=== PATIENT | female | born 1970 | race African-American/Black ===

== ENCOUNTER → 2023-11-23 09:22 | Outpatient (REF) | payer OTHER, SELFPAY | LOC: HWRAD 09:22 | PROVIDERS: ATTENDING PHYSICIAN Nurse Practitioner | DX: R20.2 Paresthesia of skin (principal) | CPT/HCPCS: 72050 ==

== ENCOUNTER → 2024-05-19 06:25 | Day surgery (SDC) | payer OTHER, SELFPAY | LOC: GI 06:25 | PROVIDERS: ATTENDING PHYSICIAN Internal Medicine | DX: Z12.11 Encounter for screening for malignant neoplasm of colon (principal); K64.9 Unspecified hemorrhoids; D12.2 Benign neoplasm of ascending colon; D12.3 Benign neoplasm of transverse colon; D12.8 Benign neoplasm of rectum | CPT/HCPCS: 45385; 88305 ==

== ENCOUNTER → 2024-06-01 18:59 | Outpatient (REF) | payer OTHER, SELFPAY | LOC: WDC 18:59 | PROVIDERS: FAMILY PHYSICIAN Nurse Practitioner | DX: Z12.31 Encounter for screening mammogram for malignant neoplasm of breast (principal) | CPT/HCPCS: 77063; 77067 ==

== ENCOUNTER 2024-12-06 20:30 | Emergency (ER) | payer OTHER, SELFPAY ==
[2024-12-06 20:40] VITALS: BP 140/107
[2024-12-06 21:00] LABS: Hematocrit 36.5 % (37.0-47.0); Hemoglobin 12.1 g/dL (12.0-16.0); Mean Corp Hgb Conc. 33.2 g/dL (33.0-37.0); Mean Corpuscular Hgb 27.9 pg (27.0-31.0); Mean Corpuscular Volume 84.1 fL (81.0-99.0); Mean Platelet Volume 11.3 fL (7.4-10.4); Platelet Count 215 10^3/uL (130-400); Red Blood Cell Count 4.34 10^6/uL (4.20-5.40); Red Cell Dist. Width 13.9 % (11.5-14.5); White Blood Cell Count 9.3 10^3/uL (4.8-10.8)
[2024-12-06 21:14] LABS: ALT (SGPT) 23 U/L (0-35); AST (SGOT) 29 U/L (14-36); Albumin 4.7 g/dl (3.5-5.0); Alkaline Phosphatase 104 U/L (38-126); Blood Urea Nitrogen 15 mg/dl (7-17); Calcium 10.3 mg/dl (8.4-10.2); Carbon Dioxide 24 mmol/L (22-30); Chloride 106 mmol/L (98-107); Glucose 85 mg/dl (70-99); Potassium 3.8 mmol/L (3.5-5.1); Sodium 141 mmol/L (135-145); Total Bilirubin 0.3 mg/dl (0.2-1.3); Total Protein 7.6 g/dl (6.3-8.2); eGFR > 60.00
--- NOTE | 2024-12-06 21:18 | ED.GENMED ---
History of Present Illness
General
Chief Complaint: Cardiac Symptoms
Source: patient
Exam Limitations: none
Time Seen by Provider: 12/06/24 21:07
Nursing documentation reviewed up to this point in time: agreed with
History of Present Illness
History of Present Illness:
54-year-old female with past medical history of asthma, GERD presents to the emergency department for evaluation of chest pain. Patient reports symptoms started just prior to arrival while she was doing some paperwork at home; she says that she had
rather abrupt onset of sharp pain in the left chest associated with palpitations, dizziness. She says its lasted for about 5 minutes and did not seem to be getting better and so she decided that she would drive to the emergency room to be
evaluated. She says that when she got here she waited in the parking lot for a bit and symptoms seem to be improved slightly but then they began to worsen again and so she came in to be evaluated. She says that since coming back into a room her
symptoms seem to have resolved. She says that she has not had similar symptoms in the past. She denies any personal history of heart issues but says that her mother has history of heart disease.
Review of Systems
Review of Systems
All Other Systems: ROS reviewed and negative except as documented in HPI and ROS
Constitutional: Denies fever
Respiratory: Reports trouble breathing; Denies cough
Cardiac: Reports chest pain and palpitations; Denies diaphoresis or syncope
ABD/GI: Denies abdominal pain, nausea or vomiting
: Denies flank pain
Musculoskeletal: Denies neck pain or back pain
Neurological: Reports dizzy; Denies headache
Phy Exam
Physical Exam
Physical Exam:
General: Awake, alert, oriented x3; no acute distress
Head: Normocephalic, atraumatic
Eyes: Conjunctiva normal, sclera anicteric
Throat: Airway intact, handling secretions
Neck: Trachea midline, supple without meningismus
Lungs: Clear to auscultation bilaterally, no wheezing, rales, rhonchi
Heart: Tachycardia with regular rhythm, no murmurs, gallops, or rubs
Abd: Soft, non distended, nontender
Neuro: No gross deficits
Extremities: No edema in extremities, equal pulses in all extremities
Scores
Heart Failure Risk
Heart Failure Risk Score: Not Applicable
Heart Score for Chest Pain Patients
STEMI patient?: No
History: Slightly or Non-Suspicious
ECG: Nonspecific Repolarization
Age: >45 - <65 years
Risk Factors: 1 or 2 Risk Factors
Troponin: </= Normal Limit
Heart Score for Chest Pain Patients: 3
Heart Score Risk: 2.5% MACE over next 6 weeks
PE Wells Score
Symptoms of DVT: No
No alternative diagnosis better explains the illness: Yes
Tachycardia with pulse > 100: Yes
Immobilization (>=3 days) or surgery within previous 4 weeks: No
Prior history of DVT or pulmonary embolism: No
Presence of hemoptysis: No
Presence of malignancy: No
Pulmonary Embolism Risk Score: 7.5
Probability of PE: Pt is high risk
Withdrawal Assessment of Alcohol
Withdrawal Assessment Completed?: Not applicable
Course
Orders/Labs/Results
Orders:
Orders
12/06/24 20:32
Electrocardiogram (*1) Urgent
Reason for Study: Chest Pain
12/06/24 20:33
EKG- Treatment ONCE
12/06/24 20:45
EKG [Electrocardiogram (*1)] Urgent
Reason for Study: Chest Pain
12/06/24 20:46
EKG- Treatment ONCE
12/06/24 20:48
Complete Blood Count/With Diff Urgent
Comprehensive Metabolic Panel Urgent
HCG, Serum Qualitative Screen Urgent
Comment: ADD ON
Manual Differential Urgent
Troponin I Urgent
12/06/24 21:17
CT Chest PE Study Urgent
Comment:
Reason For Exam: chest pain, SOB, tachycardia
12/06/24 21:25
EKG- Treatment ONCE
12/06/24 21:29
Add On- LAB Urgent
Tests Added?: HCG
12/06/24 23:45
EKG [Electrocardiogram (*1)] Urgent
Reason for Study: Chest Pain
Troponin I Urgent
Abnormal Lab Results
12/06/24
20:48
Hct 36.5 L %
(37.0-47.0)
MPV 11.3 H fL
(7.4-10.4)
Segmented Neutrophils 39 L %
(42-75)
Calcium 10.3 H mg/dl
(8.4-10.2)
12/06/24 20:48
12/06/24 20:48
Vital Signs
Initial and Last Documented VS:
Initial Vital Signs
Temp Pulse Resp BP Pulse Ox
36.7 C 106 22 140/107 100
12/06/24 20:40 12/06/24 20:40 12/06/24 20:40 12/06/24 20:40 12/06/24 20:40
Last Documented Vital Signs
Temp Pulse Resp BP Pulse Ox
36.7 C 95 23 128/89 98
12/06/24 20:40 12/06/24 21:30 12/06/24 21:30 12/06/24 21:24 12/06/24 21:30
MDM/Problems Addressed
Differential Diagnosis Includes:
ACS/angina, PE, dysrhythmia, pneumothorax, costochondritis, GERD, anxiety
MDM/Problems Addressed:
54-year-old female presents for evaluation of chest pain associated with palpitations, dizziness, shortness of breath�started just prior to arrival although symptoms seem to have improved since ER arrival. Hypertensive, tachycardic; otherwise
normal vitals. Physical exam as above. EKG shows sinus tachycardia. Plan to place an IV check labs including a CBC and a CMP. Check troponins. Will check CT chest. Will monitor on telemetry. Reassess after the above.
Labs reviewed: CBC and CMP unremarkable. Troponin undetectable x 1�repeat pending. CT chest negative for PE�incidental note of possible dilation of common bile duct. Patient has normal LFTs, no abdominal pain or tenderness�no indication for
emergent abdominal imaging at this point. Discussed with patient and she will follow-up on this with her primary doctor�provided copy of her report. Clinical reassessment patient has remained asymptomatic since initial assessment. Is feeling much
better. Her vital signs have normalized. Will continue to monitor pending repeat troponin. If negative plan to discharge with referral via chest pain hotline given her family history of heart disease. Patient is very comfortable with this plan.
All questions answered.
*Radiology
Radiology exam reviewed: radiology read reviewed
*Pulse Oximetry
Patient hypoxic: no
*EKG
Interpreted by ED Provider?: Yes
Heart Rate: 115
Rate: tachycardiac
Rhythm: sinus and sinus tachycardia
[place]: normal axis
Interval: normal interval
QRS Pattern: normal QRS
Ischemia: non-specific ST changes
*Critical Care Note
Total Time (30-74mins, 75-104mins- exclusive of procedures): Not Applicable
Data Reviewed
Source: patient and records
ED Attending Note
-
Portions of this chart may have been created with voice recognition software.� Occasional wrong word or��sound alike� substitutions may have occurred due to the inherent limitations of voice recognition software.
Discharge Plan
Departure
Patient with high blood pressure during this ER visit?: Yes
Discharge Problem:
Chest pain
Instructions: Chest Pain DCA Follow Up
Prescriptions:
No Action
Biotin
2 PO DAILY
Doryx
1 PO DAILY
Referrals:
Ochoa Nelson MD [Active] - Call in 1-3 days for appt
Activity Restrictions/Additional Instructions:
Thank you for visiting the Emergency Department at [facility].
1. Please schedule a follow up appointment as directed. Call first thing tomorrow morning to make an appointment.
2. If indicated, please take your medications as instructed and indicated on discharge paperwork.
3. If any of your symptoms do not improve, or persist, or become more severe within 6-12 hours, please return to the emergency department for further care.
4. Please return to the emergency department if you develop a headache, neck pain/stiffness, fever greater than 100.4F, chest pain, shortness of breath, persistent nausea, vomiting, slurred speech, difficulty walking, numbness/tingling, weakness,
signs of infection or any other symptoms that are worrisome to you.
Please call [phone] if you have any questions.
Interventions
Interventions:
*Risk Screen - Suicide Last Done: 12/06/24 20:40
*General Assessment Last Done: 12/06/24 20:40
*Neglect/Abuse Screening Last Done: 12/06/24 20:40
*ED COVID-19 Vaccine History Last Done: 12/06/24 20:40
ED- Pulmonary Assessment Last Done: 12/06/24 21:23
ED- Cardiac Assessment Last Done: 12/06/24 21:23
Discharge Date and Time
Print Language: ESTONIAN
[2024-12-06 21:21] LABS: Troponin I < 0.012 ng/ml
[2024-12-06 21:23] VITALS: BMI 23.2
[2024-12-06 21:24] VITALS: BP 128/89
[2024-12-06 21:28] LABS: Absolute Neutrophils -Man Diff 3.6 10^3/uL (1.4-6.5); Atypical Lymphocytes 7 %; Band Neutrophils 0 % (0-3); Eosinophils 1 % (0-6); Lymphocytes 50 % (20-51); Monocytes 3 % (2-9); Normal RBC Morphology Yes; Platelets Checked Yes; Segmented Neutrophils 39 % (42-75); Total Cells Counted 100
[2024-12-06 22:00] VITALS: BP 119/72
[2024-12-06 22:34] LABS: HCG, Serum Qualitative Screen Negative
[2024-12-06 23:00] VITALS: BP 127/81
[2024-12-07] VITALS: BP 120/83
[2024-12-07 00:20] LABS: Troponin I < 0.012 ng/ml
== END 2024-12-07 00:31 | disposition home or self-care (01) ==
LOC: EMR 20:30
PROVIDERS: Student in an Organized Health Care Education/Training Program; EMERGENCY PHYSICIAN Emergency Medicine
DX: R07.89 Other chest pain (principal); R42 Dizziness and giddiness; R00.2 Palpitations; R06.02 Shortness of breath; M79.602 Pain in left arm; R00.0 Tachycardia, unspecified; R03.0 Elevated blood-pressure reading, without diagnosis of hypertension; J45.909 Unspecified asthma, uncomplicated; K21.9 Gastro-esophageal reflux disease without esophagitis; Z82.49 Family history of ischemic heart disease and other diseases of the circulatory system
CPT/HCPCS: 99285; 71275; 80053; 84484; 84703; 85025; 93005; Q9967

== ENCOUNTER → 2025-06-05 08:30 | Outpatient (REF) | payer OTHER, SELFPAY | LOC: WDC 08:30 | DX: Z12.31 Encounter for screening mammogram for malignant neoplasm of breast (principal) | CPT/HCPCS: 77063; 77067 ==